=== PATIENT | female | born 1990 | race Two or more races ===

== ENCOUNTER 2019-03-27 14:25 | Emergency (ER) | payer MEDICAID ==
--- NOTE | 2019-03-27 17:19 | RADIOLOGY REPORT (SQ) ---
EXAM DESCRIPTION: VENOUS UNILATERAL LOWER COMPLETED DATE/TIME: 03/27/2019 5:02 pm REASON FOR STUDY: left COMPARISON: None. TECHNIQUE: Dynamic and static mantilla scale and color images acquired of the left leg venous system. Se lected spectral images acquired with additional compression and augmentation maneuvers. The contralat eral common femoral vein and saphenofemoral junction were also imaged. Images stored on PACS. LIMITATIONS: None. FINDINGS: COMMON FEMORAL: Normal phasicity, compression and augmentation. No visualized echogenic ma terial on mantilla scale. No defects on color images. FEMORAL: Normal compression and augmentation. No visualized echogenic material on mantilla scale. No defe cts on color images. POPLITEAL: Normal compression, augmentation. No visualized echogenic material on mantilla scale. No defec ts on color images. CALF VESSELS: Normal compression, augmentation. No visualized echogenic material on mantilla scale. No de fects on color images. GSV and SSV: Normal compression, augmentation. No visualized echogenic material on mantilla scale. No def ects on color images. ANY DEEP VENOUS INSUFFICIENCY: No. ANY EVIDENCE OF POPLITEAL CYST: No. OTHER: No other significant finding. CONTRALATERAL COMMON FEMORAL VEIN AND SAPHENOFEMORAL JUNCTION: Normal phasicity, compression and augmentation. No visualized echogenic material on mantilla scale. No de fects on color images. IMPRESSION: NO EVIDENCE DVT OR SVT IN THE LEFT LEG. TECHNICAL DOCUMENTATION: JOB ID: [id number] [employer]- All Rights Reserved Reading location - IP/workstation name: [email or web address]
--- NOTE | 2019-03-27 17:51 | ER Document Report ---
HPI - HPI Patient complains to provider of: right leg pain Time Seen by Provider: 03/27/19 16:14 Pain Level: 2 Context: Patient is a 28-year-old female presents to the emergency department with left posterior thigh and left popliteal pain. States started this morning. States she did have a spontaneous vaginal delivery on 03/18/2019. States she was reading of her paperwork from her discharge from the hospital after her delivery which stated she had any lower leg extremity pain she should return to the emergency room outs this could be a blood clot. Patient's denying any history of DVT or PE. She denies any history of anticoagulants. Patient denies shortness of breath, lightheadedness, dizziness, weakness, headache, chest pain. - CONSTITUTIONAL Constitutional: REPORTS: Chills - NEURO Neurology: DENIES: Headache, Weakness, Vision blurred, Dizzinesss / Vertigo - REPRODUCTIVE Reproductive: REPORTS: : - MUSCULOSKELETAL Musculoskeletal: REPORTS: Extremity pain - DERM Skin Color: Normal, [place] Past Medical History - General Information source: Patient - Social History Smoking Status: Never Smoker Frequency of alcohol use: None Drug Abuse: None Family History: Reviewed & Not Pertinent Patient has suicidal ideation: No Patient has homicidal ideation: No Renal/ Medical History: Denies: Hx Peritoneal Dialysis Vertical Provider Document - CONSTITUTIONAL Agree With Documented VS: Yes Notes: GENERAL: Alert, interacts well. No acute distress. HEAD: Normocephalic, atraumatic. EYES: Pupils equal, round, and reactive to light. Extraocular movements intact. ENT: Oral mucosa moist, tongue midline. NECK: Full range of motion. Supple. Trachea midline. LUNGS: Clear to auscultation bilaterally, no wheezes, rales, or rhonchi. No respiratory distress. HEART: Regular rate and rhythm. No murmur ABDOMEN: Soft, non-tender. Non-distended. Bowel sounds present in all 4 quadrants. EXTREMITIES: Moves all 4 extremities spontaneously. No edema, normal radial and dorsalis pedis pulses bilaterally. No cyanosis. Patient's pain is posterior left thigh, no area of erythema, ecchymosis, fluctuance, induration, swelling. Patient is also complaining of pain in the left popliteal region continues without erythema, ecchymosis, swelling, induration, fluctuance. Denies pain in bilateral calfs. 5 out of 5 strength all 4 extremities BACK: no cervical, thoracic, lumbar midline tenderness. No saddle anesthesia, normal distal neurovascular exam. NEUROLOGICAL: Alert and oriented x3. Normal speech. cranial nerves II through XII grossly intact PSYCH: Normal affect, normal mood. SKIN: Warm, dry, normal turgor. No rashes or lesions noted. - INFECTION CONTROL TRAVEL OUTSIDE OF THE [place] IN LAST 30 DAYS: No Course - Re-evaluation Re-evalutation: 03/27/19 17:49 Venous Doppler Study 03/27/19 16:20 IMPRESSION: NO EVIDENCE DVT OR SVT IN THE LEFT LEG. Discussed negative venous Doppler study with patient at bedside. Discussed close follow-up with primary care provider with close return precautions. Patient voices understanding, stable for discharge. - Vital Signs Vital signs: Temp Pulse Resp BP Pulse Ox 98.3 F 82 14 127/91 H 98 03/27/19 14:52 03/27/19 14:52 03/27/19 14:52 03/27/19 14:52 03/27/19 14:52 Discharge - Discharge Clinical Impression: Left leg pain Condition: Stable Disposition: HOME, SELF-CARE Instructions: Leg Pain Nonspecific ([facility]) Additional Instructions: As we discussed you have been seen and treated in the emergency department for left leg pain. Your venous Doppler study reveals no signs of blood clots. Please make sure you follow-up with your primary care provider in the next 24 to 48 hours. Please also make sure you follow-up with your TECHNICAL SALES DIRECTOR as instructed. Please return to the emergency room for any concerns. Referrals: SARAHY CLEMENTS MD [Primary Care Provider] - Follow up as needed
[2019-03-27 18:01] VITALS: BP 110/74
== END 2019-03-27 18:06 | disposition home or self-care (01) ==
LOC: ER 14:25
DX: M79.604 Pain in right leg (principal); M79.652 Pain in left thigh
CPT/HCPCS: 93971; 99283